=== PATIENT | female | born 1965 | race Caucasian/White ===

== ENCOUNTER 2017-07-02 13:25 | Emergency (ER) | payer OTHER ==
[~2017-07-02] VITALS: Ht 154.9 cm; Wt 75.9 kg
[~2017-07-02 13:25] MED LIST: ALEVE220 MG PO; BUSPAR10 MG PO; CYMBALTA60 MG PO; GABAPENTIN100 MG PO; KEPPRA500 MG PO; LAMOTRIGINE100 MG PO; LATUDA60 MG PO; LEVETIRACETAM1000 MG PO; LO-DOSE ASPIRIN81 M1 PO; PROAIR HFA8.5 GM IH; REQUIP0.5 MG PO
[2017-07-02 14:27] LABS: HEMATOCRIT 39.6 % (36.0-46.0); HEMOGLOBIN 13.5 G/DL (11.9-15.5); MCH 30.7 PG (29.0-34.0); MCHC 34.1 G/DL (30.0-36.0); PLATELET COUNT 273 K/uL (156-360); RBC DIS.WIDTH-CV 12.4 % (11.8-14.6); WHITE BLOOD COUNT 6.8 K/uL (4.1-10.2)
[2017-07-02 14:35] LABS: ALBUMIN 4.2 g/dL (3.2-4.8); CHLORIDE 106 mEq/L (99-109); POTASSIUM 4.1 mEq/L (3.7-5.4)
[2017-07-02 14:36] LABS: SODIUM 144 mEq/L (136-147)
[2017-07-02 14:38] LABS: GLUCOSE 96 mg/dL (70-99); TOTAL PROTEIN 6.9 g/dL (6.4-8.3)
[2017-07-02 14:40] LABS: TOTAL BILIRUBIN 0.3 mg/dL (0.0-1.0)
[2017-07-02 14:41] LABS: ALKALINE PHOSPHATASE 64 IU/L (3-129); CREATININE 0.9 mg/dL (0.6-1.3); GFR ESTIMATE (CALCULATED) > 59 mL/min/
[2017-07-02 14:43] LABS: AST (GOT) 47 IU/L (2-34); UREA NITROGEN (BUN) 11 mg/dL (9-23)
[2017-07-02 14:44] LABS: ALT (GPT) 54 IU/L (3-49)
[2017-07-02 14:45] LABS: LIPASE 13 U/L (1.0-51.0)
[2017-07-02 14:51] LABS: QUANTITATIVE HCG < 4.0 MIU/ML
[2017-07-02 17:15] LABS: APPEARANCE SL.HAZY ((CLEAR)); BILIRUBIN NEGATIVE; BLOOD SMALL; COLOR YELLOW ((YELLOW)); GLUCOSE (STRIP) NEGATIVE; KETONES NEGATIVE; LEUKOCYTES MODERATE; NITRITE NEGATIVE; PROTEIN (STRIP) NEGATIVE; UROBILINOGEN 0.2 MG/DL (0.2-1.0)
[2017-07-02 17:33] LABS: BACTERIA RARE /HPF; EPITHELIAL CELLS 3+ /HPF; MUCUS NONE SEEN /LPF; RED BLOOD CELLS 0-5 /HPF (0-5); UCUL ADDED? YES; WHITE BLOOD CELLS 20-30 /HPF (0-5)
[2017-07-02] MEDS ORDERED: ZOFRAN4 MG SL (20:53)
[2017-07-02] MEDS ORDERED: BACTRIM,SEPT1 TABLET PO (21:11)
[2017-07-02 21:33] VITALS: BP 137/61
== END 2017-07-02 21:44 | disposition home or self-care (01) ==
LOC: EME 13:25
DX: N39.0 Urinary tract infection, site not specified (principal); K59.00 Constipation, unspecified; R10.11 Right upper quadrant pain; F17.200 Nicotine dependence, unspecified, uncomplicated; F32.9 Major depressive disorder, single episode, unspecified; Z86.73 Personal history of transient ischemic attack (TIA), and cerebral infarction without residual deficits; Z79.82 Long term (current) use of aspirin; Z88.0 Allergy status to penicillin
CPT/HCPCS: 74177; 76705; 80053; 81003; 83690; 84702; 85027; 87086; 99281; 99284; J2270; J2405; J7030

== ENCOUNTER 2017-10-20 16:41 | Observation (INO) | payer OTHER ==
[~2017-10-20] VITALS: Ht 154.9 cm; Wt 66.1 kg
[~2017-10-20 16:41] MED LIST changes: +BACTRIM,SEPT1 TABLET PO; -PROAIR HFA8.5 GM IH; +PROAIR RESPICL90 MCG IH; +ZOFRAN4 MG SL
[2017-10-20 17:22] LABS: BASOPHIL (%) 0.4 % (0-1); EOSINOPHIL (%) 1.2 % (0-5); EOSINOPHIL COUNT 0.1 K/uL (0-0.3); HEMATOCRIT 41.1 % (36.0-46.0); IMMATURE GRANULOCYTE (%) 0.1 % (0.0-0.7); LYMPHOCYTE (%) 35.7 % (15-42); MCH 30.7 PG (29.0-34.0); MCHC 34.1 G/DL (30.0-36.0); MCV 90.1 FL (83-99); MONOCYTE (%) 5.4 % (3-12); MONOCYTE COUNT 0.5 K/uL (0-0.8); NEUTROPHIL (%) 57.2 % (45-76); NEUTROPHIL COUNT 4.8 K/uL (1.8-6.4); PLATELET COUNT 277 K/uL (156-360); RBC DIS.WIDTH-CV 12.6 % (11.8-14.6); RBC DIS.WIDTH-SD 41.6 % (39-53); RED BLOOD COUNT 4.56 M/uL (3.80-5.20); WHITE BLOOD COUNT 8.3 K/uL (4.1-10.2)
[2017-10-20 17:33] LABS: ALBUMIN 4.4 g/dL (3.2-4.8); CHLORIDE 105 mEq/L (99-109); SODIUM 144 mEq/L (136-147)
[2017-10-20 17:36] LABS: GLUCOSE 94 mg/dL (70-99); TOTAL PROTEIN 7.2 g/dL (6.4-8.3)
[2017-10-20 17:38] LABS: TOTAL BILIRUBIN 0.4 mg/dL (0.0-1.0)
[2017-10-20 17:39] LABS: ALKALINE PHOSPHATASE 67 IU/L (3-129)
[2017-10-20 17:40] LABS: CREATININE 0.9 mg/dL (0.6-1.3); GFR ESTIMATE (CALCULATED) > 59 mL/min/
[2017-10-20 17:41] LABS: AST (GOT) 42 IU/L (2-34); DIRECT BILIRUBIN 0.1 mg/dL (0.0-0.3); UREA NITROGEN (BUN) 10 mg/dL (9-23)
[2017-10-20 17:42] LABS: ALT (GPT) 46 IU/L (3-49)
[2017-10-20 17:43] LABS: LIPASE 11 U/L (1.0-51.0)
[2017-10-20 17:46] LABS: TROP-I INTERPRETATION NEGATIVE; TROPONIN-I < 0.01 ng/mL (0.0-0.30)
[2017-10-20] MEDS ORDERED: SINGULAIR10 MG PO (18:51)
[2017-10-20] MEDS ORDERED: ADDERALL15 MG PO (18:51)
[2017-10-20] MEDS ORDERED: ADDERALL XR 3030 MG PO (18:51)
[2017-10-20] MEDS ORDERED: PRISTIQ100 MG PO (18:52)
[2017-10-20] MEDS ORDERED: XANAX0.5 MG PO (18:52)
[2017-10-20] MEDS ORDERED: FLONASE16 G1 BOTH NARES (18:52)
[2017-10-20] MEDS ORDERED: PERCOCET 7.51 TABLET PO (18:52)
[2017-10-20] MEDS ORDERED: PRAVACHOL20 MG PO (18:52)
[2017-10-20 21:42] VITALS: BP 134/77
[2017-10-21 00:48] VITALS: BP 126/78
[2017-10-21 01:24] LABS: TROP-I INTERPRETATION NEGATIVE; TROPONIN-I < 0.01 ng/mL (0.0-0.30)
[2017-10-21 03:53] VITALS: BP 121/73
[2017-10-21] MEDS ORDERED: ASPIR-LOW81 MG PO (05:42)
[2017-10-21] MEDS ORDERED: LOPRESSOR25 MG PO (05:42)
[2017-10-21] MEDS ORDERED: NITROSTAT0.4 MG SL (05:44)
[2017-10-21 07:51] LABS: TROP-I INTERPRETATION NEGATIVE; TROPONIN-I < 0.01 ng/mL (0.0-0.30)
[2017-10-21 08:23] VITALS: BP 112/57
[2017-10-21 08:30] LABS: HDL CHOLESTEROL 59 MG/DL (Desirable>=50); LDL CHOLESTEROL 131 mg/dL (Desirable<100); NON-HDL CHOLESTEROL 167 mg/dL (Desirable<160); TOTAL CHOLESTEROL 226 mg/dL (Desirable<200); TRIGLYCERIDES 182 MG/DL (Normal: <150)
== END 2017-10-21 12:42 | disposition home or self-care (01) ==
LOC: EME 16:41 → EDOF 19:29 → 4SOUTH 19:29 → EDOF 19:29 → ENRESERV 19:31 → 4SOUTH 21:36
PROVIDERS: Emergency Medicine; Physician Assistant Medical
DX: R07.89 Other chest pain (principal); E78.5 Hyperlipidemia, unspecified; F17.210 Nicotine dependence, cigarettes, uncomplicated; J45.909 Unspecified asthma, uncomplicated; G40.909 Epilepsy, unspecified, not intractable, without status epilepticus; I10 Essential (primary) hypertension; F31.9 Bipolar disorder, unspecified; F41.8 Other specified anxiety disorders; F19.11 Other psychoactive substance abuse, in remission; F90.9 Attention-deficit hyperactivity disorder, unspecified type; Z82.49 Family history of ischemic heart disease and other diseases of the circulatory system; Z80.42 Family history of malignant neoplasm of prostate; E66.9 Obesity, unspecified; Z68.30 Body mass index [BMI] 30.0-30.9, adult; Z90.710 Acquired absence of both cervix and uterus; Z88.0 Allergy status to penicillin
CPT/HCPCS: 71046; 71275; 80048; 80061; 80076; 83690; 83880; 84484; 85025; 93005; 94799; 99281; 99285; G0378; J1650